=== PATIENT | female | born 1935 | race Caucasian/White ===

== ENCOUNTER 2017-11-13 04:31 | Inpatient (IN) | payer MEDICARE, BC ==
[2017-11-13] MEDS ORDERED: SODIUM CHLORIDE 0.9% FLUSH 10 ML FLUSH IVF (04:45)
[2017-11-13 05:25] LABS: AUTOMATED NEUTROPHIL # 2.6 TH/MM3 (1.8-7.7); BASOPHIL % 0.3 % (0.0-2.0); EOSINOPHIL % 0.2 % (0.0-4.0); HEMATOCRIT 31.7 % (35.0-46.0); LYMPH % 14.2 % (9.0-44.0); LYMPHOCYTE # 0.5 TH/MM3 (1.0-4.8); MEAN CELL VOLUME 87.3 FL (80.0-100.0); MEAN CORPUSCULAR HEMOGLOBIN 27.5 PG (27.0-34.0); MEAN CORPUSCULAR HGB CONC 31.5 % (32.0-36.0); MEAN PLATELET VOLUME 8.4 FL (7.0-11.0); MONO % 10.4 % (0.0-8.0); MONOCYTE # 0.4 TH/MM3 (0-0.9); NEUT % 74.9 % (16.0-70.0); PLATELET COUNT 109 TH/MM3 (150-450); RED BLOOD COUNT 3.63 MIL/MM3 (4.00-5.30); RED CELL DISTRIBUTION WIDTH 27.7 % (11.6-17.2); WHITE BLOOD COUNT 3.5 TH/MM3 (4.0-11.0)
[2017-11-13 05:29] LABS: HEMO FLAGS AUTO DIFF
[2017-11-13 05:35] LABS: CHLORIDE 103 MEQ/L (98-107); POTASSIUM 3.6 MEQ/L (3.5-5.1); SODIUM (NA) 136 MEQ/L (136-145)
[2017-11-13 05:39] LABS: ALBUMIN 2.5 GM/DL (3.4-5.0); ANION GAP 6 MEQ/L (5-15); APTT (PATIENT) 32.8 SEC (24.3-30.1); BICARBONATE 27.4 MEQ/L (21.0-32.0); BLOOD UREA NITROGEN 25 MG/DL (7-18); CALCIUM 7.8 MG/DL (8.5-10.1); GLUCOSE,RANDOM 201 MG/DL (74-106); INTERNATIONAL NORMALIZED RATIO 1.7 RATIO; LIPASE 155 U/L (73-393); PROTHROMBIN TIME - PATIENT 16.7 SEC (9.8-11.6)
[2017-11-13 05:41] LABS: OVALOCYTES 1+ (NORMAL); PLATELET ESTIMATE SMEAR LOW (NORMAL); PLATELET MORPHOLOGY NORMAL (NORMAL); SCAN/DIFF AUTO DIFF CONFIRMED
[2017-11-13 05:42] LABS: ALT (GPT) 30 U/L (10-53); AST (GOT) 40 U/L (15-37); GLOMERULAR FILTRATION RATE 48 ML/MIN (>89)
[2017-11-13 05:44] LABS: TOTAL BILIRUBIN ADULT 1.3 MG/DL (0.2-1.0); TOTAL PROTEIN 6.8 GM/DL (6.4-8.2)
[2017-11-13 05:45] LABS: ALKALINE PHOSPHATASE 88 U/L (45-117)
[2017-11-13 05:47] LABS: TROPONIN I 0.03 NG/ML (0.02-0.05)
[2017-11-13 05:49] LABS: CREATINE KINASE 46 U/L (26-192)
[2017-11-13] MEDS ORDERED: ONDANSETRON HCL 4 MG/2 ML VIAL IVP (06:00)
[2017-11-13] MEDS ORDERED: LACTULOSE SYRUP 20 GM/30 ML CUP PO (06:00)
[2017-11-13] MEDS ORDERED: MAGNESIUM HYDROXIDE SUSP 30 ML CUP PO (06:00)
[2017-11-13] MEDS ORDERED: HEPARIN SODIUM - SQ 10,000 UNITS/ML VIAL SQ (06:00)
[2017-11-13] MEDS ORDERED: NALOXONE HCL 0.4 MG/ML AMP IV PUSH (06:00)
[2017-11-13 06:02] LABS: B-TYPE NATRIURETIC PEPTIDE 1107 PG/ML (0-100)
[2017-11-13] MEDS ORDERED: DEXTROSE 50% IN WATER 50 ML VIAL(D50) IV PUSH (06:15)
[2017-11-13] MEDS ORDERED: GLUCAGON 1 MG/ML VIAL OTHER (06:15)
[2017-11-13] MEDS: IOHEXOL 350 MG/ML 10 ML VIAL (for RAD DIAG) IVCONTRAST (06:34)
[2017-11-13] MEDS: LEVOTHYROXINE SODIUM 25 MCG TAB PO ×2 (07:23→10:07)
[2017-11-13] MEDS: INSULIN ASPART SUPPLEMENTAL SCALE SQ ×4 (07:36→21:25)
[2017-11-13] MEDS: DOCUSATE SODIUM 50 MG/SENNA 8.6 MG TAB PO ×2 (10:07→21:14)
[2017-11-13] MEDS: DILTIAZEM-CD 180 MG CAP ER PO (10:08)
[2017-11-13] MEDS: BUMETANIDE 1 MG TAB PO ×2 (10:08→21:13)
[2017-11-13] MEDS: CITALOPRAM HYDROBROMIDE 20 MG TAB PO (10:08)
[2017-11-13] MEDS: PANTOPRAZOLE SOD 40 MG DELAYED RELEASE TAB PO (10:08)
[2017-11-13] MEDS: SODIUM CHLORIDE 0.9% FLUSH 10 ML FLUSH IV FLUSH ×3 (10:09→23:11)
[2017-11-13] MEDS: FUROSEMIDE 40 MG/4 ML VIAL IV PUSH (10:09)
[2017-11-13] MEDS: ZEBETA 5 MG PO (10:09)
[2017-11-13] MEDS: AZITHROMYCIN INJ 500 MG in SODIUM CHLOR 0.9% 250 ML INJ 250 ML IV (11:13)
[2017-11-13] MEDS: methylPREDNISolone SOD SUCC 40 MG/1 ML VIAL IV PUSH ×3 (12:23→23:11)
[2017-11-13] MEDS: cefTRIAXone INJ 1,000 MG in SODIUM CHLORIDE 0.9% INJ 100 ML IV (12:23)
[2017-11-13] MEDS: RESP: ALBUTEROL 2.5 MG/IPRATROPIUM 0.5 MG NEB (SCH) NEB ×2 (14:10→20:33)
[2017-11-13] MEDS: WARFARIN SOD 2 MG TAB PO (16:08)
[2017-11-13] MEDS: POTASSIUM CHLORIDE 20 MEQ CONTROLLED RELEASE TAB PO (21:14)
[2017-11-13 21:27] LABS: IRON (FE) 28 MCG/DL (50-170)
[2017-11-13 21:28] LABS: TOTAL IRON BINDING CAPACITY 281 MCG/DL (250-450); TRANSFERRIN IRON PROFILE 201 MG/DL (200-360)
[2017-11-13] MEDS: ALPRAZolam 0.25 MG TAB PO (22:38)
[2017-11-13] MEDS: INSULIN DETEMIR 100 UNITS/ML VIAL SQ (22:38)
[2017-11-14 03:22] LABS: HEMOGLOBIN 10.3 GM/DL (11.6-15.3); MEAN CELL VOLUME 87.8 FL (80.0-100.0); PLATELET COUNT 84 TH/MM3 (150-450); RED BLOOD COUNT 3.53 MIL/MM3 (4.00-5.30); RED CELL DISTRIBUTION WIDTH 28.2 % (11.6-17.2); WHITE BLOOD COUNT 1.9 TH/MM3 (4.0-11.0)
[2017-11-14 03:26] LABS: HEMO FLAGS AUTO DIFF
[2017-11-14 03:32] LABS: ANION GAP 8 MEQ/L (5-15); BICARBONATE 26.2 MEQ/L (21.0-32.0); BLOOD UREA NITROGEN 27 MG/DL (7-18); CALCIUM 7.8 MG/DL (8.5-10.1); CHLORIDE 101 MEQ/L (98-107); CREATININE 1.31 MG/DL (0.50-1.00); GLOMERULAR FILTRATION RATE 39 ML/MIN (>89); GLUCOSE,RANDOM 429 MG/DL (74-106); INTERNATIONAL NORMALIZED RATIO 1.5 RATIO; POTASSIUM 3.5 MEQ/L (3.5-5.1); PROTHROMBIN TIME - PATIENT 15.4 SEC (9.8-11.6); SODIUM (NA) 135 MEQ/L (136-145)
[2017-11-14] MEDS: INSULIN HUMAN REGULAR 1,000 UNITS/10 ML VIAL IV PUSH (03:52)
[2017-11-14 04:35] LABS: BANDS 2 % (0-6); LYMPHOCYTES 6 % (9-44); MONOCYTES 2 % (0-8); NEUTROPHIL # MANUAL DIFF 1.7 TH/MM3 (1.8-7.7); POLYS (SEG NEUTROPHILS) 90 % (16-70); WBC DIFF SAMPLE 50
[2017-11-14 04:36] LABS: PLATELET ESTIMATE SMEAR LOW (NORMAL); PLATELET MORPHOLOGY NORMAL (NORMAL); SCAN/DIFF FINAL DIFF MANUAL
[2017-11-14] MEDS: methylPREDNISolone SOD SUCC 40 MG/1 ML VIAL IV PUSH ×3 (06:26→18:01)
[2017-11-14] MEDS: RESP: ALBUTEROL 2.5 MG/IPRATROPIUM 0.5 MG NEB (SCH) NEB ×3 (08:58→21:00)
[2017-11-14] MEDS: ZEBETA 5 MG PO (09:00)
[2017-11-14] MEDS ORDERED: POTASSIUM CHLORIDE 10 MEQ CAP PO (09:00)
[2017-11-14] MEDS: POTASSIUM CHLORIDE 20 MEQ CONTROLLED RELEASE TAB PO ×2 (09:21→22:42)
[2017-11-14] MEDS: PANTOPRAZOLE SOD 40 MG DELAYED RELEASE TAB PO (09:21)
[2017-11-14] MEDS: DILTIAZEM-CD 180 MG CAP ER PO (09:21)
[2017-11-14] MEDS: CITALOPRAM HYDROBROMIDE 20 MG TAB PO (09:21)
[2017-11-14] MEDS: DOCUSATE SODIUM 50 MG/SENNA 8.6 MG TAB PO ×2 (09:21→21:00)
[2017-11-14] MEDS: BUMETANIDE 1 MG TAB PO ×2 (09:21→22:41)
[2017-11-14] MEDS: INSULIN ASPART SUPPLEMENTAL SCALE SQ ×4 (09:28→22:44)
[2017-11-14] MEDS: SODIUM CHLORIDE 0.9% FLUSH 10 ML FLUSH IV FLUSH ×2 (09:29→21:00)
[2017-11-14] MEDS: cefTRIAXone INJ 1,000 MG in SODIUM CHLORIDE 0.9% INJ 100 ML IV (10:31)
[2017-11-14] MEDS: AZITHROMYCIN INJ 500 MG in SODIUM CHLOR 0.9% 250 ML INJ 250 ML IV (11:09)
[2017-11-14] MEDS: INSULIN DETEMIR 100 UNITS/ML VIAL SQ (11:45)
[2017-11-14] MEDS: WARFARIN SOD 2 MG TAB PO (16:00)
[2017-11-14] MEDS ORDERED: DEXT 5%-NACL 0.45% 1000 ML INJ 1,000 ML IV (18:09)
[2017-11-14] MEDS ORDERED: RESP: ALBUTEROL CONC 2.5 MG/0.5 ML NEB NEB (18:15)
[2017-11-14] MEDS ORDERED: RESP: LIDOCAINE HCL 4% PF 5 ML NEB NEB (18:15)
[2017-11-14 21:48] LABS: AUTOMATED NEUTROPHIL # 4.8 TH/MM3 (1.8-7.7); BASOPHIL % 0.2 % (0.0-2.0); HEMATOCRIT 31.1 % (35.0-46.0); HEMOGLOBIN 10.4 GM/DL (11.6-15.3); LYMPH % 7.8 % (9.0-44.0); LYMPHOCYTE # 0.4 TH/MM3 (1.0-4.8); MEAN CELL VOLUME 88.1 FL (80.0-100.0); MEAN CORPUSCULAR HEMOGLOBIN 29.4 PG (27.0-34.0); MEAN CORPUSCULAR HGB CONC 33.3 % (32.0-36.0); MEAN PLATELET VOLUME 8.7 FL (7.0-11.0); MONO % 6.1 % (0.0-8.0); MONOCYTE # 0.3 TH/MM3 (0-0.9); NEUT % 85.9 % (16.0-70.0); PLATELET COUNT 101 TH/MM3 (150-450); RED BLOOD COUNT 3.53 MIL/MM3 (4.00-5.30); RED CELL DISTRIBUTION WIDTH 27.9 % (11.6-17.2); WHITE BLOOD COUNT 5.6 TH/MM3 (4.0-11.0)
[2017-11-14 21:50] LABS: HEMO FLAGS AUTO DIFF
[2017-11-14 22:38] LABS: ACANTHOCYTES OCC (NORMAL); OVALOCYTES 1+ (NORMAL)
[2017-11-14 22:39] LABS: PLATELET ESTIMATE SMEAR LOW (NORMAL); PLATELET MORPHOLOGY NORMAL (NORMAL); SCAN/DIFF AUTO DIFF CONFIRMED
[2017-11-14 23:02] LABS: APTT (PATIENT) 30.6 SEC (24.3-30.1); INTERNATIONAL NORMALIZED RATIO 1.6 RATIO; PROTHROMBIN TIME - PATIENT 15.9 SEC (9.8-11.6)
[2017-11-15] MEDS: methylPREDNISolone SOD SUCC 40 MG/1 ML VIAL IV PUSH ×2 (01:22→06:03)
[2017-11-15] MEDS: RESP: ALBUTEROL 2.5 MG/IPRATROPIUM 0.5 MG NEB (PRN) NEB (01:28)
[2017-11-15] MEDS ORDERED: CHLORHEXIDINE GLUCONATE 2 % 1 PACK (2 CLOTHS) TOPICAL (04:45)
[2017-11-15] MEDS ORDERED: LACTATED RINGER'S 1000 ML IV (04:45)
[2017-11-15] MEDS ORDERED: SODIUM CHLORID 0.9% 500 ML IV (04:45)
[2017-11-15] MEDS ORDERED: POVIDONE IODINE 5% (ANTISEPSIS KIT) 4 APPLICATIONS EACH NARE (04:45)
[2017-11-15] MEDS: LEVOTHYROXINE SODIUM 25 MCG TAB PO (06:03)
[2017-11-15] MEDS: RESP: ALBUTEROL 2.5 MG/IPRATROPIUM 0.5 MG NEB (SCH) NEB ×3 (08:00→18:39)
[2017-11-15] MEDS: ZEBETA 5 MG PO (08:12)
[2017-11-15] MEDS: INSULIN ASPART SUPPLEMENTAL SCALE SQ ×5 (08:12→22:29)
[2017-11-15] MEDS: SODIUM CHLORIDE 0.9% FLUSH 10 ML FLUSH IV FLUSH ×2 (08:12→20:32)
[2017-11-15] MEDS: DILTIAZEM-CD 180 MG CAP ER PO (08:13)
[2017-11-15] MEDS: BUMETANIDE 1 MG TAB PO ×2 (08:13→20:32)
[2017-11-15] MEDS: INSULIN DETEMIR 100 UNITS/ML VIAL SQ ×2 (08:13→09:00)
[2017-11-15] MEDS: DOCUSATE SODIUM 50 MG/SENNA 8.6 MG TAB PO ×2 (08:13→20:33)
[2017-11-15] MEDS: PANTOPRAZOLE SOD 40 MG DELAYED RELEASE TAB PO (08:13)
[2017-11-15] MEDS: CITALOPRAM HYDROBROMIDE 20 MG TAB PO (08:13)
[2017-11-15] MEDS: POTASSIUM CHLORIDE 20 MEQ CONTROLLED RELEASE TAB PO ×2 (08:13→20:31)
[2017-11-15] MEDS: *RESP: ALBUTEROL 2.5 MG/3 ML NEB (PRN) PERIprocedural Use ONLY NEB (09:09)
[2017-11-15] MEDS: AZITHROMYCIN INJ 500 MG in SODIUM CHLOR 0.9% 250 ML INJ 250 ML IV (10:00)
[2017-11-15] MEDS ORDERED: DO NOT ADM ANY ANTICOAGULANT DRUGS (10:15)
[2017-11-15 11:31] LABS: AUTOMATED NEUTROPHIL # 4.2 TH/MM3 (1.8-7.7); HEMATOCRIT 29.6 % (35.0-46.0); HEMOGLOBIN 9.7 GM/DL (11.6-15.3); LYMPH % 2.7 % (9.0-44.0); LYMPHOCYTE # 0.1 TH/MM3 (1.0-4.8); MEAN CELL VOLUME 89.5 FL (80.0-100.0); MEAN CORPUSCULAR HEMOGLOBIN 29.4 PG (27.0-34.0); MEAN CORPUSCULAR HGB CONC 32.9 % (32.0-36.0); MEAN PLATELET VOLUME 8.7 FL (7.0-11.0); MONO % 5.6 % (0.0-8.0); MONOCYTE # 0.3 TH/MM3 (0-0.9); NEUT % 91.7 % (16.0-70.0); PLATELET COUNT 100 TH/MM3 (150-450); RED BLOOD COUNT 3.31 MIL/MM3 (4.00-5.30); RED CELL DISTRIBUTION WIDTH 28.3 % (11.6-17.2); WHITE BLOOD COUNT 4.6 TH/MM3 (4.0-11.0)
[2017-11-15 11:38] LABS: INTERNATIONAL NORMALIZED RATIO 1.6 RATIO; PROTHROMBIN TIME - PATIENT 16.1 SEC (9.8-11.6)
[2017-11-15 11:42] LABS: HEMO FLAGS AUTO DIFF
[2017-11-15] MEDS: cefTRIAXone INJ 1,000 MG in SODIUM CHLORIDE 0.9% INJ 100 ML IV (11:57)
[2017-11-15 12:16] LABS: ALBUMIN 2.7 GM/DL (3.4-5.0); ALKALINE PHOSPHATASE 77 U/L (45-117); ALT (GPT) 25 U/L (10-53); ANION GAP 12 MEQ/L (5-15); AST (GOT) 27 U/L (15-37); BICARBONATE 23.5 MEQ/L (21.0-32.0); BLOOD UREA NITROGEN 40 MG/DL (7-18); CALCIUM 8.5 MG/DL (8.5-10.1); CHLORIDE 102 MEQ/L (98-107); CREATININE 1.61 MG/DL (0.50-1.00); GLOMERULAR FILTRATION RATE 31 ML/MIN (>89); GLUCOSE,RANDOM 280 MG/DL (74-106); POTASSIUM 3.6 MEQ/L (3.5-5.1); SODIUM (NA) 137 MEQ/L (136-145); TOTAL BILIRUBIN ADULT 0.6 MG/DL (0.2-1.0); TOTAL PROTEIN 6.8 GM/DL (6.4-8.2)
[2017-11-15 12:26] LABS: SCAN/DIFF AUTO DIFF CONFIRMED
[2017-11-15] MEDS: WARFARIN SOD 2 MG TAB PO (16:00)
[2017-11-15] MEDS: ACETAMINOPHEN 325 MG TAB PO (18:58)
[2017-11-15] MEDS ORDERED: methylPREDNISolone SOD SUCC 40 MG/1 ML VIAL IV PUSH (19:30)
[2017-11-15] MEDS: methylPREDNISolone SOD SUCC 125 MG/2 ML VIAL IV (20:31)
[2017-11-15 20:58] LABS: LACTIC ACID SEPSIS PROTOCOL 2.7 mmol/L (0.4-2.0)
[2017-11-15] MEDS: SODIUM CHLOR 0.9% 1000 ML INJ 1,000 ML IV ×2 (22:15→22:29)
[2017-11-15 22:35] LABS: LACTIC ACID GHOST NOT REPORTABLE
[2017-11-16] MEDS: cloNIDine HCL 0.1 MG TAB PO ×2 (01:52→09:47)
[2017-11-16] MEDS: LEVOTHYROXINE SODIUM 25 MCG TAB PO (05:07)
[2017-11-16 06:33] LABS: AUTOMATED NEUTROPHIL # 5.8 TH/MM3 (1.8-7.7); BASOPHIL % 0.1 % (0.0-2.0); HEMATOCRIT 30.7 % (35.0-46.0); HEMOGLOBIN 10.1 GM/DL (11.6-15.3); LYMPH % 3.4 % (9.0-44.0); LYMPHOCYTE # 0.2 TH/MM3 (1.0-4.8); MEAN CORPUSCULAR HEMOGLOBIN 29.3 PG (27.0-34.0); MEAN CORPUSCULAR HGB CONC 32.9 % (32.0-36.0); MEAN PLATELET VOLUME 9.1 FL (7.0-11.0); MONO % 5.1 % (0.0-8.0); MONOCYTE # 0.3 TH/MM3 (0-0.9); NEUT % 91.4 % (16.0-70.0); PLATELET COUNT 95 TH/MM3 (150-450); RED BLOOD COUNT 3.45 MIL/MM3 (4.00-5.30); WHITE BLOOD COUNT 6.3 TH/MM3 (4.0-11.0)
[2017-11-16 06:34] LABS: INTERNATIONAL NORMALIZED RATIO 1.6 RATIO; PROTHROMBIN TIME - PATIENT 16.5 SEC (9.8-11.6)
[2017-11-16 06:35] LABS: HEMO FLAGS AUTO DIFF
[2017-11-16 06:40] LABS: ALBUMIN 2.5 GM/DL (3.4-5.0); ALT (GPT) 27 U/L (10-53); ANION GAP 11 MEQ/L (5-15); AST (GOT) 37 U/L (15-37); BICARBONATE 22.3 MEQ/L (21.0-32.0); BLOOD UREA NITROGEN 34 MG/DL (7-18); CALCIUM 8.1 MG/DL (8.5-10.1); CHLORIDE 104 MEQ/L (98-107); CREATININE 1.24 MG/DL (0.50-1.00); GLOMERULAR FILTRATION RATE 42 ML/MIN (>89); GLUCOSE,RANDOM 322 MG/DL (74-106); POTASSIUM 4.1 MEQ/L (3.5-5.1); SODIUM (NA) 137 MEQ/L (136-145)
[2017-11-16 06:42] LABS: ALKALINE PHOSPHATASE 75 U/L (45-117); TOTAL BILIRUBIN ADULT 0.7 MG/DL (0.2-1.0); TOTAL PROTEIN 6.8 GM/DL (6.4-8.2)
[2017-11-16 08:07] LABS: BANDS 19 % (0-6); LYMPHOCYTES 2 % (9-44); MONOCYTES 3 % (0-8); OVALOCYTES 1+ (NORMAL); PLATELET ESTIMATE SMEAR LOW (NORMAL); PLATELET MORPHOLOGY ENLARGED (NORMAL); POLYS (SEG NEUTROPHILS) 76 % (16-70); SCAN/DIFF FINAL DIFF MANUAL; WBC DIFF SAMPLE 100
[2017-11-16] MEDS: ZEBETA 5 MG PO (09:00)
[2017-11-16] MEDS: RESP: ALBUTEROL 2.5 MG/IPRATROPIUM 0.5 MG NEB (SCH) NEB ×3 (09:09→19:33)
[2017-11-16] MEDS: DILTIAZEM-CD 180 MG CAP ER PO (09:46)
[2017-11-16] MEDS: BUMETANIDE 1 MG TAB PO ×2 (09:46→21:00)
[2017-11-16] MEDS: POTASSIUM CHLORIDE 20 MEQ CONTROLLED RELEASE TAB PO ×2 (09:46→21:00)
[2017-11-16] MEDS: PANTOPRAZOLE SOD 40 MG DELAYED RELEASE TAB PO (09:47)
[2017-11-16] MEDS: DOCUSATE SODIUM 50 MG/SENNA 8.6 MG TAB PO ×2 (09:47→21:00)
[2017-11-16] MEDS: SODIUM CHLORIDE 0.9% FLUSH 10 ML FLUSH IV FLUSH ×2 (09:47→21:00)
[2017-11-16] MEDS: CITALOPRAM HYDROBROMIDE 20 MG TAB PO (09:47)
[2017-11-16] MEDS: INSULIN ASPART SUPPLEMENTAL SCALE SQ ×4 (09:48→21:00)
[2017-11-16] MEDS: INSULIN DETEMIR 100 UNITS/ML VIAL SQ ×2 (09:48→20:00)
[2017-11-16] MEDS: AZITHROMYCIN INJ 500 MG in SODIUM CHLOR 0.9% 250 ML INJ 250 ML IV (10:04)
[2017-11-16] MEDS: cefTRIAXone INJ 1,000 MG in SODIUM CHLORIDE 0.9% INJ 100 ML IV (12:24)
[2017-11-16 13:17] LABS: BLOOD GAS BASE EXCESS 0.9 mmol/L (-2-2); BLOOD GAS CARBOXYHEMOGLOBIN 1.3 % (0-4); BLOOD GAS HCO3 24 mmol/L (22-26); BLOOD GAS METHEMOGLOBIN 1.5 % (0-2); BLOOD GAS O2 HGB SATURATION 90 % (90-100); BLOOD GAS OXYGEN CONTENT 13.6 Vol % (12.0-20.0); BLOOD GAS PCO2 35 mmHg (38-42); BLOOD GAS PO2 67 mmHg (61-120); BLOOD GAS TOTAL HGB 10.7 G/DL (12.0-16.0); CRITICAL VALUE NO; DRAW SITE LT RADIAL; LITER FLOW 15 L/M; NUMBER OF ARTERIAL PUNCTURES 1; STAT YES; TEMP CORR TO 98.6; ULNAR PULSE PRESENT
[2017-11-16] MEDS: WARFARIN SOD 1 MG TAB PO (16:29)
[2017-11-16] MEDS ORDERED: SODIUM CHLORID 0.9% 500 ML INJ 500 ML IV (20:15)
[2017-11-16 20:33] LABS: BLOOD GAS BASE EXCESS 0.9 mmol/L (-2-2); BLOOD GAS HCO3 24 mmol/L (22-26); BLOOD GAS METHEMOGLOBIN 1.8 % (0-2); BLOOD GAS O2 HGB SATURATION 90 % (90-100); BLOOD GAS PCO2 32 mmHg (38-42); BLOOD GAS PO2 66 mmHg (61-120); BLOOD GAS TOTAL HGB 9.4 G/DL (12.0-16.0); CRITICAL VALUE NO; DRAW SITE LT RADIAL; FIO2 70 %; NUMBER OF ARTERIAL PUNCTURES 1; OXYGEN DEVICE BIPAP; STAT YES; TEMP CORR TO 98.6; ULNAR PULSE PRESENT
[2017-11-16 20:34] LABS: VENT SETTINGS IPAP 10/ EPAP 5
[2017-11-16] MEDS: methylPREDNISolone SOD SUCC 125 MG/2 ML VIAL IV PUSH (20:45)
[2017-11-16] MEDS ORDERED: VANCOMYCIN INJ 1,000 MG in SODIUM CHLOR 0.9% 250 ML INJ 250 ML IV (21:45)
[2017-11-16] MEDS ORDERED: Vancomycin Consult Pharmacy 1 EA OTHER (21:45)
[2017-11-16] MEDS: CEFEPIME INJ 2,000 MG in SODIUM CHLORIDE 0.9% INJ 100 ML IV (22:00)
[2017-11-16] MEDS: SODIUM CHLOR 0.9% 1000 ML INJ 1,000 ML IV (22:00)
[2017-11-16] MEDS: VANCOMYCIN INJ 1,500 MG in SODIUM CHLORID 0.9% 500 ML INJ 500 ML IV (23:00)
[2017-11-17] MEDS: methylPREDNISolone SOD SUCC 40 MG/1 ML VIAL IV PUSH ×4 (03:00→23:55)
[2017-11-17] MEDS: LEVOTHYROXINE SODIUM 25 MCG TAB PO (06:00)
[2017-11-17 07:00] LABS: AUTOMATED NEUTROPHIL # 5.1 TH/MM3 (1.8-7.7); BASOPHIL % 0.2 % (0.0-2.0); HEMATOCRIT 31.6 % (35.0-46.0); HEMOGLOBIN 10.6 GM/DL (11.6-15.3); LYMPH % 6.6 % (9.0-44.0); LYMPHOCYTE # 0.4 TH/MM3 (1.0-4.8); MEAN CELL VOLUME 87.7 FL (80.0-100.0); MEAN CORPUSCULAR HEMOGLOBIN 29.3 PG (27.0-34.0); MEAN CORPUSCULAR HGB CONC 33.4 % (32.0-36.0); MEAN PLATELET VOLUME 8.8 FL (7.0-11.0); MONO % 3.9 % (0.0-8.0); MONOCYTE # 0.2 TH/MM3 (0-0.9); NEUT % 89.3 % (16.0-70.0); PLATELET COUNT 93 TH/MM3 (150-450); WHITE BLOOD COUNT 5.7 TH/MM3 (4.0-11.0)
[2017-11-17 07:03] LABS: HEMO FLAGS AUTO DIFF
[2017-11-17 07:29] LABS: ALBUMIN 2.2 GM/DL (3.4-5.0); ALKALINE PHOSPHATASE 68 U/L (45-117); ALT (GPT) 22 U/L (10-53); ANION GAP 9 MEQ/L (5-15); AST (GOT) 41 U/L (15-37); BICARBONATE 26.5 MEQ/L (21.0-32.0); BLOOD UREA NITROGEN 28 MG/DL (7-18); CALCIUM 7.8 MG/DL (8.5-10.1); CHLORIDE 105 MEQ/L (98-107); CREATININE 1.07 MG/DL (0.50-1.00); GLOMERULAR FILTRATION RATE 49 ML/MIN (>89); GLUCOSE,RANDOM 168 MG/DL (74-106); INTERNATIONAL NORMALIZED RATIO 1.4 RATIO; POTASSIUM 3.5 MEQ/L (3.5-5.1); PROTHROMBIN TIME - PATIENT 14.2 SEC (9.8-11.6); SODIUM (NA) 140 MEQ/L (136-145); TOTAL BILIRUBIN ADULT 0.9 MG/DL (0.2-1.0); TOTAL PROTEIN 6.4 GM/DL (6.4-8.2)
[2017-11-17] MEDS: RESP: ALBUTEROL 2.5 MG/IPRATROPIUM 0.5 MG NEB (SCH) NEB ×4 (08:00→21:19)
[2017-11-17 08:47] LABS: OVALOCYTES 1+ (NORMAL); PLATELET ESTIMATE SMEAR LOW (NORMAL); PLATELET MORPHOLOGY NORMAL (NORMAL); SCAN/DIFF AUTO DIFF CONFIRMED
[2017-11-17] MEDS: ZEBETA 5 MG PO (09:00)
[2017-11-17] MEDS ORDERED: ETOMIDATE 20 MG/10 ML VIAL (09:07)
[2017-11-17] MEDS: ETOMIDATE 20 MG/10 ML VIAL IV PUSH (09:15)
[2017-11-17] MEDS ORDERED: POTASSIUM CHLOR 20 MEQ PREMIX 100 ML IV ×2 (09:30)
[2017-11-17] MEDS ORDERED: MAGNESIUM SULFATE INJ 4 GM in SODIUM CHLORIDE 0.9% INJ 92 ML IV (09:30)
[2017-11-17] MEDS ORDERED: POTASSIUM CHLORIDE 25 MEQ EFFERVESCENT TAB PO (09:30)
[2017-11-17] MEDS ORDERED: POTASSIUM PHOSPHATE INJ 30 MMOL in SODIUM CHLOR 0.9% 250 ML INJ 250 ML IV (09:30)
[2017-11-17] MEDS: FAMOTIDINE 20 MG/2 ML VIAL IV PUSH ×2 (09:30→21:30)
[2017-11-17] MEDS ORDERED: POTASSIUM PHOSPHATE MONOBASIC 500 MG TAB PO (09:30)
[2017-11-17] MEDS ORDERED: MAGNESIUM SULFATE INJ 2 GM in SODIUM CHLORIDE 0.9% INJ 96 ML IV (09:30)
[2017-11-17] MEDS ORDERED: POTASSIUM CHLOR 40 MEQ PREMIX 100 ML IV ×2 (09:30)
[2017-11-17] MEDS ORDERED: SODIUM PHOSPHATE INJ 30 MMOL in SODIUM CHLOR 0.9% 250 ML INJ 240 ML IV (09:30)
[2017-11-17] MEDS ORDERED: POTASSIUM PHOSPHATE MONOBASIC 500 MG TAB PO/TUBE (09:30)
[2017-11-17] MEDS ORDERED: MAGNESIUM OXIDE 400 MG TAB PO (09:30)
[2017-11-17 11:05] LABS: AUTOMATED NEUTROPHIL # 5.4 TH/MM3 (1.8-7.7); BASOPHIL % 0.1 % (0.0-2.0); HEMATOCRIT 32.3 % (35.0-46.0); HEMOGLOBIN 10.6 GM/DL (11.6-15.3); LYMPH % 8.2 % (9.0-44.0); LYMPHOCYTE # 0.5 TH/MM3 (1.0-4.8); MEAN CELL VOLUME 88.8 FL (80.0-100.0); MEAN CORPUSCULAR HEMOGLOBIN 29.2 PG (27.0-34.0); MEAN CORPUSCULAR HGB CONC 32.9 % (32.0-36.0); MONO % 4.9 % (0.0-8.0); MONOCYTE # 0.3 TH/MM3 (0-0.9); NEUT % 86.8 % (16.0-70.0); PLATELET COUNT 115 TH/MM3 (150-450); RED BLOOD COUNT 3.64 MIL/MM3 (4.00-5.30); RED CELL DISTRIBUTION WIDTH 27.8 % (11.6-17.2); WHITE BLOOD COUNT 6.2 TH/MM3 (4.0-11.0)
[2017-11-17 11:16] LABS: HEMO FLAGS AUTO DIFF
[2017-11-17 11:42] LABS: OVALOCYTES 1+ (NORMAL); PLATELET ESTIMATE SMEAR LOW (NORMAL); PLATELET MORPHOLOGY NORMAL (NORMAL); SCAN/DIFF AUTO DIFF CONFIRMED
[2017-11-17 11:43] LABS: B-TYPE NATRIURETIC PEPTIDE 665 PG/ML (0-100)
[2017-11-17 11:58] LABS: BILIRUBIN, URINE NEG (NEG); BLOOD, URINE SMALL (NEG); COMMENT (UR) CATH-CULT NOT IND; CULTURE IF INDICATED CATH CULTURE NOT IND; GLUCOSE,URINE NEG (NEG); HYALINE CAST, URINE 8 /lpf (RARE); KETONE, URINE NEG (NEG); NITRITE,URINE NEG (NEG); PH, URINE 5.5 (5.0-8.5); SQUAMOUS EPITHELIAL CELL URINE <1 /hpf (0-5); URINE COLOR LIGHT-YELLOW (YELLW/STRAW); URINE LEUKOCYTE ESTERASE NEG (NEG)
[2017-11-17] MEDS: CEFEPIME INJ 2,000 MG in SODIUM CHLORIDE 0.9% INJ 100 ML IV ×2 (12:22→23:54)
[2017-11-17] MEDS: FUROSEMIDE 40 MG/4 ML VIAL IV PUSH (12:24)
[2017-11-17] MEDS: PANTOPRAZOLE SODIUM 40 MG VIAL IV PUSH (12:24)
[2017-11-17] MEDS: SODIUM CHLORIDE 0.9% FLUSH 10 ML FLUSH IV FLUSH ×2 (12:25→21:00)
[2017-11-17] MEDS: AZITHROMYCIN INJ 500 MG in SODIUM CHLOR 0.9% 250 ML INJ 250 ML IV (12:27)
[2017-11-17] MEDS: INSULIN ASPART SUPPLEMENTAL SCALE SQ ×3 (12:30→20:00)
[2017-11-17 12:32] LABS: BLOOD GAS BASE EXCESS 2.9 mmol/L (-2-2); BLOOD GAS CARBOXYHEMOGLOBIN 0.8 % (0-4); BLOOD GAS HCO3 28 mmol/L (22-26); BLOOD GAS METHEMOGLOBIN 1.8 % (0-2); BLOOD GAS O2 HGB SATURATION 96 % (90-100); BLOOD GAS OXYGEN CONTENT 13.4 Vol % (12.0-20.0); BLOOD GAS PCO2 51 mmHg (38-42); BLOOD GAS PO2 185 mmHg (61-120); BLOOD GAS TOTAL HGB 9.6 G/DL (12.0-16.0); CRITICAL VALUE YES; OXYGEN DEVICE VENTILATOR; TEMP CORR TO 98.6
[2017-11-17 12:33] LABS: DRAW SITE LT RADIAL; FIO2 100 %; NUMBER OF ARTERIAL PUNCTURES 1; STAT NO; ULNAR PULSE PRESENT; VENT SETTINGS PRVC14/400/+10PEEP
[2017-11-17] MEDS: PROPOFOL 500 MG/50 ML INJ 50 ML (13:02)
[2017-11-17] MEDS: CITALOPRAM HYDROBROMIDE 20 MG TAB PO (13:05)
[2017-11-17] MEDS: fentaNYL DRIP 250 ML IV (13:05)
[2017-11-17] MEDS: DOCUSATE SODIUM 50 MG/SENNA 8.6 MG TAB PO ×2 (13:06→21:00)
[2017-11-17] MEDS: PROPOFOL 1000 MG/100 ML INJ 100 ML IV ×2 (13:06→17:30)
[2017-11-17 13:33] LABS: ALBUMIN 2.1 GM/DL (3.4-5.0); ALT (GPT) 21 U/L (10-53); ANION GAP 9 MEQ/L (5-15); AST (GOT) 40 U/L (15-37); BICARBONATE 27.3 MEQ/L (21.0-32.0); BLOOD UREA NITROGEN 29 MG/DL (7-18); CALCIUM 7.7 MG/DL (8.5-10.1); CHLORIDE 106 MEQ/L (98-107); CREATININE 1.07 MG/DL (0.50-1.00); GLOMERULAR FILTRATION RATE 49 ML/MIN (>89); GLUCOSE,RANDOM 205 MG/DL (74-106); MAGNESIUM 1.8 MG/DL (1.5-2.5); PHOSPHORUS 3.9 MG/DL (2.5-4.9); POTASSIUM 3.9 MEQ/L (3.5-5.1); SODIUM (NA) 142 MEQ/L (136-145)
[2017-11-17 13:43] LABS: ALKALINE PHOSPHATASE 64 U/L (45-117); TROPONIN I 0.05 NG/ML (0.02-0.05)
[2017-11-17 13:46] LABS: CREATINE KINASE 65 U/L (26-192)
[2017-11-17] MEDS: CHLORHEXIDINE 0.12% (ORAL KIT) 15 ML CUP MT (20:24)
[2017-11-17] MEDS: VANCOMYCIN 1,000 MG/NS 250 ML IV (23:55)
[2017-11-18] MEDS: RESP: ALBUTEROL 2.5 MG/IPRATROPIUM 0.5 MG NEB (SCH) NEB ×7 (00:22→23:58)
[2017-11-18] MEDS: PROPOFOL 1000 MG/100 ML INJ 100 ML IV ×2 (02:22→14:24)
[2017-11-18] MEDS: INSULIN ASPART SUPPLEMENTAL SCALE SQ ×6 (04:00→20:25)
[2017-11-18 05:26] LABS: AUTOMATED NEUTROPHIL # 3.8 TH/MM3 (1.8-7.7); BASOPHIL % 0.1 % (0.0-2.0); EOSINOPHIL % 0.1 % (0.0-4.0); HEMATOCRIT 30.7 % (35.0-46.0); HEMOGLOBIN 10.1 GM/DL (11.6-15.3); LYMPH % 5.1 % (9.0-44.0); LYMPHOCYTE # 0.2 TH/MM3 (1.0-4.8); MEAN CELL VOLUME 89.2 FL (80.0-100.0); MEAN CORPUSCULAR HEMOGLOBIN 29.3 PG (27.0-34.0); MEAN CORPUSCULAR HGB CONC 32.9 % (32.0-36.0); MEAN PLATELET VOLUME 9.4 FL (7.0-11.0); MONO % 5.4 % (0.0-8.0); MONOCYTE # 0.2 TH/MM3 (0-0.9); NEUT % 89.3 % (16.0-70.0); PLATELET COUNT 99 TH/MM3 (150-450); RED BLOOD COUNT 3.44 MIL/MM3 (4.00-5.30); RED CELL DISTRIBUTION WIDTH 27.6 % (11.6-17.2); WHITE BLOOD COUNT 4.3 TH/MM3 (4.0-11.0)
[2017-11-18 05:29] LABS: HEMO FLAGS AUTO DIFF
[2017-11-18 05:31] LABS: INTERNATIONAL NORMALIZED RATIO 1.5 RATIO; PROTHROMBIN TIME - PATIENT 15.3 SEC (9.8-11.6)
[2017-11-18 05:46] LABS: ALT (GPT) 19 U/L (10-53); PHOSPHORUS 4.2 MG/DL (2.5-4.9)
[2017-11-18 05:48] LABS: ALKALINE PHOSPHATASE 65 U/L (45-117); TOTAL BILIRUBIN ADULT 0.8 MG/DL (0.2-1.0); TOTAL PROTEIN 6.3 GM/DL (6.4-8.2)
[2017-11-18 05:50] LABS: ALBUMIN 2.1 GM/DL (3.4-5.0); ANION GAP 8 MEQ/L (5-15); AST (GOT) 38 U/L (15-37); BICARBONATE 25.6 MEQ/L (21.0-32.0); BLOOD UREA NITROGEN 38 MG/DL (7-18); CALCIUM 8.2 MG/DL (8.5-10.1); CHLORIDE 108 MEQ/L (98-107); CREATININE 1.17 MG/DL (0.50-1.00); GLOMERULAR FILTRATION RATE 45 ML/MIN (>89); GLUCOSE,RANDOM 227 MG/DL (74-106); MAGNESIUM 2.1 MG/DL (1.5-2.5); SODIUM (NA) 142 MEQ/L (136-145)
[2017-11-18] MEDS: methylPREDNISolone SOD SUCC 40 MG/1 ML VIAL IV PUSH ×3 (06:00→17:41)
[2017-11-18] MEDS: LEVOTHYROXINE SODIUM 25 MCG TAB PO (06:00)
[2017-11-18 06:51] LABS: OVALOCYTES 1+ (NORMAL); PLATELET ESTIMATE SMEAR LOW (NORMAL); PLATELET MORPHOLOGY NORMAL (NORMAL); SCAN/DIFF AUTO DIFF CONFIRMED
[2017-11-18] MEDS: PROPOFOL 500 MG/50 ML INJ 0 ML (07:59)
[2017-11-18] MEDS: FAMOTIDINE 20 MG/2 ML VIAL IV PUSH ×2 (08:40→20:27)
[2017-11-18] MEDS: DOCUSATE SODIUM 50 MG/SENNA 8.6 MG TAB PO ×2 (08:40→20:26)
[2017-11-18] MEDS: CITALOPRAM HYDROBROMIDE 20 MG TAB PO (08:40)
[2017-11-18] MEDS: ZEBETA 5 MG PO (09:00)
[2017-11-18] MEDS: INSULIN DETEMIR 100 UNITS/ML VIAL SQ ×2 (09:36→20:25)
[2017-11-18] MEDS: FUROSEMIDE 40 MG/4 ML VIAL IV PUSH (09:37)
[2017-11-18] MEDS: AZITHROMYCIN INJ 500 MG in SODIUM CHLOR 0.9% 250 ML INJ 250 ML IV (09:37)
[2017-11-18] MEDS: HEPARIN SODIUM - SQ 10,000 UNITS/ML VIAL SQ ×2 (09:43→20:26)
[2017-11-18] MEDS: CEFEPIME INJ 2,000 MG in SODIUM CHLORIDE 0.9% INJ 100 ML IV ×2 (10:06→22:55)
[2017-11-18] MEDS: SODIUM CHLORIDE 0.9% FLUSH 10 ML FLUSH IV FLUSH ×2 (11:41→20:26)
[2017-11-18] MEDS: fentaNYL DRIP 250 ML IV (14:25)
[2017-11-18] MEDS: CHLORHEXIDINE 0.12% (ORAL KIT) 15 ML CUP MT (20:27)
[2017-11-18] MEDS: PHARMACY ORDERED LAB (22:45)
[2017-11-18] MEDS: VANCOMYCIN 1,000 MG/NS 250 ML IV (22:56)
[2017-11-19 01:37] LABS: AUTOMATED NEUTROPHIL # 4.1 TH/MM3 (1.8-7.7); BASOPHIL % 0.1 % (0.0-2.0); HEMATOCRIT 32.7 % (35.0-46.0); HEMOGLOBIN 10.7 GM/DL (11.6-15.3); LYMPH % 4.5 % (9.0-44.0); LYMPHOCYTE # 0.2 TH/MM3 (1.0-4.8); MEAN CELL VOLUME 89.6 FL (80.0-100.0); MEAN CORPUSCULAR HEMOGLOBIN 29.3 PG (27.0-34.0); MEAN CORPUSCULAR HGB CONC 32.7 % (32.0-36.0); MEAN PLATELET VOLUME 8.7 FL (7.0-11.0); MONO % 4.2 % (0.0-8.0); MONOCYTE # 0.2 TH/MM3 (0-0.9); NEUT % 91.2 % (16.0-70.0); PLATELET COUNT 113 TH/MM3 (150-450); RED BLOOD COUNT 3.65 MIL/MM3 (4.00-5.30); RED CELL DISTRIBUTION WIDTH 26.8 % (11.6-17.2); WHITE BLOOD COUNT 4.5 TH/MM3 (4.0-11.0)
[2017-11-19 01:43] LABS: HEMO FLAGS AUTO DIFF
[2017-11-19 01:50] LABS: INTERNATIONAL NORMALIZED RATIO 1.5 RATIO; PROTHROMBIN TIME - PATIENT 15.4 SEC (9.8-11.6)
[2017-11-19 02:10] LABS: ALBUMIN 2.1 GM/DL (3.4-5.0); ALKALINE PHOSPHATASE 65 U/L (45-117); ALT (GPT) 22 U/L (10-53); ANION GAP 5 MEQ/L (5-15); AST (GOT) 34 U/L (15-37); BICARBONATE 29.6 MEQ/L (21.0-32.0); BLOOD UREA NITROGEN 55 MG/DL (7-18); CALCIUM 8.3 MG/DL (8.5-10.1); CHLORIDE 110 MEQ/L (98-107); CREATININE 1.63 MG/DL (0.50-1.00); GLOMERULAR FILTRATION RATE 30 ML/MIN (>89); GLUCOSE,RANDOM 266 MG/DL (74-106); POTASSIUM 4.6 MEQ/L (3.5-5.1); SODIUM (NA) 145 MEQ/L (136-145); TOTAL BILIRUBIN ADULT 0.7 MG/DL (0.2-1.0); TOTAL PROTEIN 6.7 GM/DL (6.4-8.2); VANCOMYCIN TROUGH 37.9 MCG/ML (5.0-10.0)
[2017-11-19] MEDS: PROPOFOL 1000 MG/100 ML INJ 100 ML IV ×2 (02:44→09:13)
[2017-11-19 03:20] LABS: BANDS 5 % (0-6); CORRECTED NUCLEATED RBC 1 /100 WBC (0-0); LYMPHOCYTES 2 % (9-44); NEUTROPHIL # MANUAL DIFF 4.4 TH/MM3 (1.8-7.7); NUCLEATED RED BLOOD CELL 1 (0-0); POLYS (SEG NEUTROPHILS) 93 % (16-70); SCAN/DIFF FINAL DIFF MANUAL; WBC DIFF SAMPLE 100
[2017-11-19 03:22] LABS: PLATELET ESTIMATE SMEAR LOW (NORMAL); PLATELET MORPHOLOGY NORMAL (NORMAL)
[2017-11-19 03:23] LABS: ACANTHOCYTES OCC (NORMAL); OVALOCYTES 1+ (NORMAL)
[2017-11-19] MEDS: INSULIN ASPART SUPPLEMENTAL SCALE SQ ×6 (04:00→20:00)
[2017-11-19] MEDS: RESP: ALBUTEROL 2.5 MG/IPRATROPIUM 0.5 MG NEB (SCH) NEB ×6 (04:23→23:51)
[2017-11-19] MEDS: LEVOTHYROXINE SODIUM 25 MCG TAB PO (06:00)
[2017-11-19] MEDS: methylPREDNISolone SOD SUCC 40 MG/1 ML VIAL IV PUSH ×3 (06:00→20:20)
[2017-11-19 06:10] LABS: BLOOD GAS BASE EXCESS 2.5 mmol/L (-2-2); BLOOD GAS CARBOXYHEMOGLOBIN 0.9 % (0-4); BLOOD GAS HCO3 29 mmol/L (22-26); BLOOD GAS METHEMOGLOBIN 1.9 % (0-2); BLOOD GAS O2 HGB SATURATION 95 % (90-100); BLOOD GAS OXYGEN CONTENT 13.9 Vol % (12.0-20.0); BLOOD GAS PCO2 65 mmHg (38-42); BLOOD GAS PO2 116 mmHg (61-120); BLOOD GAS TOTAL HGB 10.3 G/DL (12.0-16.0); CRITICAL VALUE YES; TEMP CORR TO 98.6
[2017-11-19 06:11] LABS: DRAW SITE RT BRACHIAL; FIO2 40 %; NUMBER OF ARTERIAL PUNCTURES 1; STAT NO
[2017-11-19] MEDS: FAMOTIDINE 20 MG/2 ML VIAL IV PUSH ×2 (08:39→20:19)
[2017-11-19] MEDS: INSULIN DETEMIR 100 UNITS/ML VIAL SQ ×2 (08:39→20:21)
[2017-11-19] MEDS: CITALOPRAM HYDROBROMIDE 20 MG TAB PO (08:40)
[2017-11-19] MEDS: HEPARIN SODIUM - SQ 10,000 UNITS/ML VIAL SQ ×2 (08:40→20:20)
[2017-11-19] MEDS: DOCUSATE SODIUM 50 MG/SENNA 8.6 MG TAB PO ×2 (08:40→20:19)
[2017-11-19] MEDS: CHLORHEXIDINE 0.12% (ORAL KIT) 15 ML CUP MT ×2 (08:42→20:00)
[2017-11-19] MEDS: SODIUM CHLORIDE 0.9% FLUSH 10 ML FLUSH IV FLUSH ×2 (08:43→20:20)
[2017-11-19] MEDS: ZEBETA 5 MG PO (09:00)
[2017-11-19] MEDS: SODIUM CHLOR 0.9% 1000 ML INJ 1,000 ML IV (12:07)
[2017-11-19] MEDS: CEFEPIME INJ 2,000 MG in SODIUM CHLORIDE 0.9% INJ 100 ML IV ×2 (13:00→22:55)
[2017-11-19] MEDS: METOPROLOL TARTRATE 5 MG/5 ML VIAL IV PUSH (13:28)
[2017-11-19] MEDS: CARVEDILOL 3.125 MG TAB PO ×2 (13:56→20:20)
[2017-11-19] MEDS ORDERED: PHARMACY ORDERED LAB (22:45)
[2017-11-20] MEDS: INSULIN ASPART SUPPLEMENTAL SCALE SQ ×6 (04:00→21:20)
[2017-11-20] MEDS: RESP: ALBUTEROL 2.5 MG/IPRATROPIUM 0.5 MG NEB (SCH) NEB ×6 (04:15→23:15)
[2017-11-20 06:05] LABS: ANION GAP 6 MEQ/L (5-15); BICARBONATE 27.6 MEQ/L (21.0-32.0); CALCIUM 8.3 MG/DL (8.5-10.1); CHLORIDE 116 MEQ/L (98-107); CREATININE 1.55 MG/DL (0.50-1.00); GLOMERULAR FILTRATION RATE 32 ML/MIN (>89); GLUCOSE,RANDOM 177 MG/DL (74-106); PHOSPHORUS 3.2 MG/DL (2.5-4.9); POTASSIUM 4.7 MEQ/L (3.5-5.1); SODIUM (NA) 150 MEQ/L (136-145)
[2017-11-20 06:06] LABS: BLOOD UREA NITROGEN 75 MG/DL (7-18)
[2017-11-20 06:11] LABS: BLOOD GAS BASE EXCESS 2.8 mmol/L (-2-2); BLOOD GAS CARBOXYHEMOGLOBIN 0.9 % (0-4); BLOOD GAS HCO3 27 mmol/L (22-26); BLOOD GAS METHEMOGLOBIN 1.9 % (0-2); BLOOD GAS O2 HGB SATURATION 93 % (90-100); BLOOD GAS OXYGEN CONTENT 13.9 Vol % (12.0-20.0); BLOOD GAS PCO2 43 mmHg (38-42); BLOOD GAS PO2 84 mmHg (61-120); BLOOD GAS TOTAL HGB 10.6 G/DL (12.0-16.0); CRITICAL VALUE NO; OXYGEN DEVICE VENTILATOR; TEMP CORR TO 98.6
[2017-11-20 06:12] LABS: DRAW SITE LT RADIAL; FIO2 40 %; NUMBER OF ARTERIAL PUNCTURES 1; STAT NO; ULNAR PULSE PRESENT
[2017-11-20] MEDS: LEVOTHYROXINE SODIUM 25 MCG TAB PO (06:18)
[2017-11-20 07:32] LABS: AUTOMATED NEUTROPHIL # 6.4 TH/MM3 (1.8-7.7); BASOPHIL % 0.1 % (0.0-2.0); EOSINOPHIL % 0.3 % (0.0-4.0); HEMATOCRIT 33.5 % (35.0-46.0); LYMPH % 3.3 % (9.0-44.0); LYMPHOCYTE # 0.2 TH/MM3 (1.0-4.8); MEAN CELL VOLUME 88.4 FL (80.0-100.0); MEAN CORPUSCULAR HGB CONC 32.8 % (32.0-36.0); MEAN PLATELET VOLUME 9.6 FL (7.0-11.0); MONO % 2.6 % (0.0-8.0); MONOCYTE # 0.2 TH/MM3 (0-0.9); NEUT % 93.7 % (16.0-70.0); PLATELET COUNT 144 TH/MM3 (150-450); RED BLOOD COUNT 3.79 MIL/MM3 (4.00-5.30); WHITE BLOOD COUNT 6.8 TH/MM3 (4.0-11.0)
[2017-11-20 07:50] LABS: HEMO FLAGS AUTO DIFF
[2017-11-20] MEDS: CHLORHEXIDINE 0.12% (ORAL KIT) 15 ML CUP MT ×2 (08:00→21:20)
[2017-11-20 08:31] LABS: SCAN/DIFF AUTO DIFF CONFIRMED
[2017-11-20 08:32] LABS: PLATELET ESTIMATE SMEAR LOW (NORMAL); PLATELET MORPHOLOGY NORMAL (NORMAL)
[2017-11-20] MEDS: ZEBETA 5 MG PO (09:00)
[2017-11-20] MEDS: DOCUSATE SODIUM 50 MG/SENNA 8.6 MG TAB PO ×2 (09:00→21:21)
[2017-11-20] MEDS: HEPARIN SODIUM - SQ 10,000 UNITS/ML VIAL SQ ×2 (09:00→21:00)
[2017-11-20] MEDS: INSULIN DETEMIR 100 UNITS/ML VIAL SQ ×2 (09:00→21:21)
[2017-11-20] MEDS: SODIUM CHLORIDE 0.9% FLUSH 10 ML FLUSH IV FLUSH ×2 (09:00→21:00)
[2017-11-20] MEDS: methylPREDNISolone SOD SUCC 40 MG/1 ML VIAL IV PUSH ×2 (09:00→21:21)
[2017-11-20] MEDS: CARVEDILOL 3.125 MG TAB PO ×2 (09:00→21:21)
[2017-11-20] MEDS: CITALOPRAM HYDROBROMIDE 20 MG TAB PO (09:00)
[2017-11-20 09:05] LABS: INTERNATIONAL NORMALIZED RATIO 1.4 RATIO; PROTHROMBIN TIME - PATIENT 13.7 SEC (9.8-11.6)
[2017-11-20] MEDS: FAMOTIDINE 20 MG/2 ML VIAL IV PUSH ×2 (09:30→21:21)
[2017-11-20] MEDS: CEFEPIME INJ 2,000 MG in SODIUM CHLORIDE 0.9% INJ 100 ML IV (10:00)
[2017-11-20] MEDS: DEXTROSE 5% IN WATE 1000ML INJ 1,000 ML IV (11:00)
[2017-11-20] MEDS ORDERED: CEFEPIME INJ 2,000 MG in SODIUM CHLORIDE 0.9% INJ 100 ML IV (11:45)
[2017-11-20] MEDS: ACETAMINOPHEN 325 MG TAB PO (14:22)
[2017-11-21] MEDS: INSULIN ASPART SUPPLEMENTAL SCALE SQ ×6 (00:43→20:00)
[2017-11-21] MEDS: RESP: ALBUTEROL 2.5 MG/IPRATROPIUM 0.5 MG NEB (SCH) NEB ×5 (03:58→21:56)
[2017-11-21] MEDS: LEVOTHYROXINE SODIUM 25 MCG TAB PO (04:42)
[2017-11-21 05:03] LABS: INTERNATIONAL NORMALIZED RATIO 1.3 RATIO; PROTHROMBIN TIME - PATIENT 13.3 SEC (9.8-11.6)
[2017-11-21 05:13] LABS: ALT (GPT) 29 U/L (10-53); ANION GAP 6 MEQ/L (5-15); AST (GOT) 43 U/L (15-37); BICARBONATE 27.4 MEQ/L (21.0-32.0); CALCIUM 8.4 MG/DL (8.5-10.1); CHLORIDE 116 MEQ/L (98-107); CREATININE 1.49 MG/DL (0.50-1.00); GLOMERULAR FILTRATION RATE 34 ML/MIN (>89); GLUCOSE,RANDOM 200 MG/DL (74-106); POTASSIUM 4.7 MEQ/L (3.5-5.1); SODIUM (NA) 149 MEQ/L (136-145)
[2017-11-21 05:16] LABS: ALKALINE PHOSPHATASE 62 U/L (45-117); BLOOD UREA NITROGEN 80 MG/DL (7-18); TOTAL PROTEIN 6.6 GM/DL (6.4-8.2)
[2017-11-21 06:26] LABS: BASOPHIL % 0.2 % (0.0-2.0); HEMATOCRIT 32.5 % (35.0-46.0); HEMOGLOBIN 10.7 GM/DL (11.6-15.3); LYMPH % 5.3 % (9.0-44.0); LYMPHOCYTE # 0.3 TH/MM3 (1.0-4.8); MEAN CELL VOLUME 89.3 FL (80.0-100.0); MEAN CORPUSCULAR HEMOGLOBIN 29.3 PG (27.0-34.0); MEAN CORPUSCULAR HGB CONC 32.8 % (32.0-36.0); MEAN PLATELET VOLUME 8.6 FL (7.0-11.0); MONO % 3.9 % (0.0-8.0); MONOCYTE # 0.2 TH/MM3 (0-0.9); NEUT % 90.6 % (16.0-70.0); PLATELET COUNT 119 TH/MM3 (150-450); RED BLOOD COUNT 3.64 MIL/MM3 (4.00-5.30); RED CELL DISTRIBUTION WIDTH 26.8 % (11.6-17.2); WHITE BLOOD COUNT 5.5 TH/MM3 (4.0-11.0)
[2017-11-21 06:32] LABS: HEMO FLAGS AUTO DIFF
[2017-11-21] MEDS: RESP: ALBUTEROL 2.5 MG/IPRATROPIUM 0.5 MG NEB (PRN) NEB (07:29)
[2017-11-21] MEDS: FUROSEMIDE 40 MG/4 ML VIAL IV PUSH ×2 (07:45→07:58)
[2017-11-21] MEDS: ALBUMIN 25% INJ 50 ML IV (07:51)
[2017-11-21] MEDS: CHLORHEXIDINE 0.12% (ORAL KIT) 15 ML CUP MT ×2 (08:00→20:00)
[2017-11-21 08:11] LABS: SCAN/DIFF AUTO DIFF CONFIRMED
[2017-11-21] MEDS: SODIUM CHLORIDE 0.9% FLUSH 10 ML FLUSH IV FLUSH ×2 (09:00→21:39)
[2017-11-21] MEDS: ZEBETA 5 MG PO (09:00)
[2017-11-21] MEDS: DOCUSATE SODIUM 50 MG/SENNA 8.6 MG TAB PO ×2 (09:06→21:39)
[2017-11-21] MEDS: methylPREDNISolone SOD SUCC 40 MG/1 ML VIAL IV PUSH ×2 (09:06→21:39)
[2017-11-21] MEDS: CITALOPRAM HYDROBROMIDE 20 MG TAB PO (09:06)
[2017-11-21] MEDS: INSULIN DETEMIR 100 UNITS/ML VIAL SQ ×2 (09:07→21:39)
[2017-11-21] MEDS: CARVEDILOL 3.125 MG TAB PO ×2 (09:07→21:39)
[2017-11-21] MEDS: FAMOTIDINE 20 MG/2 ML VIAL IV PUSH ×2 (10:01→21:30)
[2017-11-21] MEDS: CEFEPIME INJ 2,000 MG in SODIUM CHLORIDE 0.9% INJ 100 ML IV (10:04)
[2017-11-21 10:08] LABS: BLOOD GAS BASE EXCESS 4.1 mmol/L (-2-2); BLOOD GAS CARBOXYHEMOGLOBIN 0.9 % (0-4); BLOOD GAS HCO3 28 mmol/L (22-26); BLOOD GAS METHEMOGLOBIN 1.9 % (0-2); BLOOD GAS O2 HGB SATURATION 93 % (90-100); BLOOD GAS OXYGEN CONTENT 15.3 Vol % (12.0-20.0); BLOOD GAS PCO2 41 mmHg (38-42); BLOOD GAS PO2 91 mmHg (61-120); BLOOD GAS TOTAL HGB 11.6 G/DL (12.0-16.0); CRITICAL VALUE NO; FIO2 40 %; OXYGEN DEVICE VENTILATOR; TEMP CORR TO 98.6; VENT SETTINGS CPAP PS5/PEEP5
[2017-11-21 10:09] LABS: DRAW SITE LT RADIAL; NUMBER OF ARTERIAL PUNCTURES 1; STAT NO; ULNAR PULSE PRESENT
[2017-11-21] MEDS: FUROSEMIDE 20 MG/2 ML VIAL IV PUSH (17:00)
[2017-11-21] MEDS: DILTIAZEM HCL 60 MG TAB PO ×2 (17:52→21:39)
[2017-11-22] MEDS: RESP: ALBUTEROL 2.5 MG/IPRATROPIUM 0.5 MG NEB (SCH) NEB ×5 (00:38→21:30)
[2017-11-22] MEDS: INSULIN ASPART SUPPLEMENTAL SCALE SQ ×6 (04:00→20:00)
[2017-11-22 04:59] LABS: INTERNATIONAL NORMALIZED RATIO 1.3 RATIO; PROTHROMBIN TIME - PATIENT 13.4 SEC (9.8-11.6)
[2017-11-22 05:04] LABS: AUTOMATED NEUTROPHIL # 6.5 TH/MM3 (1.8-7.7); BASOPHIL % 0.1 % (0.0-2.0); HEMATOCRIT 32.7 % (35.0-46.0); HEMOGLOBIN 10.7 GM/DL (11.6-15.3); LYMPH % 4.5 % (9.0-44.0); LYMPHOCYTE # 0.3 TH/MM3 (1.0-4.8); MEAN CELL VOLUME 89.3 FL (80.0-100.0); MEAN CORPUSCULAR HEMOGLOBIN 29.3 PG (27.0-34.0); MEAN CORPUSCULAR HGB CONC 32.8 % (32.0-36.0); MEAN PLATELET VOLUME 8.9 FL (7.0-11.0); MONOCYTE # 0.1 TH/MM3 (0-0.9); NEUT % 93.4 % (16.0-70.0); PLATELET COUNT 133 TH/MM3 (150-450); RED BLOOD COUNT 3.66 MIL/MM3 (4.00-5.30); RED CELL DISTRIBUTION WIDTH 26.7 % (11.6-17.2)
[2017-11-22 05:08] LABS: HEMO FLAGS AUTO DIFF
[2017-11-22 05:12] LABS: ALBUMIN 2.1 GM/DL (3.4-5.0); ALT (GPT) 34 U/L (10-53); ANION GAP 7 MEQ/L (5-15); AST (GOT) 46 U/L (15-37); BLOOD UREA NITROGEN 74 MG/DL (7-18); CALCIUM 8.4 MG/DL (8.5-10.1); CHLORIDE 114 MEQ/L (98-107); CREATININE 1.43 MG/DL (0.50-1.00); GLOMERULAR FILTRATION RATE 35 ML/MIN (>89); GLUCOSE,RANDOM 155 MG/DL (74-106); SODIUM (NA) 150 MEQ/L (136-145)
[2017-11-22 05:14] LABS: ALKALINE PHOSPHATASE 63 U/L (45-117); TOTAL BILIRUBIN ADULT 1.2 MG/DL (0.2-1.0); TOTAL PROTEIN 6.5 GM/DL (6.4-8.2)
[2017-11-22] MEDS: LEVOTHYROXINE SODIUM 25 MCG TAB PO (05:52)
[2017-11-22 07:04] LABS: ACANTHOCYTES OCC (NORMAL); OVALOCYTES 1+ (NORMAL); PLATELET ESTIMATE SMEAR LOW (NORMAL); PLATELET MORPHOLOGY NORMAL (NORMAL); SCAN/DIFF AUTO DIFF CONFIRMED
[2017-11-22] MEDS: CHLORHEXIDINE 0.12% (ORAL KIT) 15 ML CUP MT ×2 (08:00→20:00)
[2017-11-22] MEDS: SODIUM CHLORIDE 23.4% INJ 38.5 MEQ in WATER STERILE FOR INJ 1,000 ML IV (08:33)
[2017-11-22] MEDS: SODIUM CHLORIDE 0.9% FLUSH 10 ML FLUSH IV FLUSH ×2 (08:34→21:31)
[2017-11-22] MEDS: DOCUSATE SODIUM 50 MG/SENNA 8.6 MG TAB PO ×2 (08:49→21:32)
[2017-11-22] MEDS: DILTIAZEM HCL 60 MG TAB PO ×4 (08:49→21:32)
[2017-11-22] MEDS: CARVEDILOL 3.125 MG TAB PO ×2 (08:50→21:32)
[2017-11-22] MEDS: FAMOTIDINE 20 MG/2 ML VIAL IV PUSH ×2 (08:50→21:32)
[2017-11-22] MEDS: methylPREDNISolone SOD SUCC 40 MG/1 ML VIAL IV PUSH ×2 (08:50→21:32)
[2017-11-22] MEDS: CITALOPRAM HYDROBROMIDE 20 MG TAB PO (08:50)
[2017-11-22] MEDS: FUROSEMIDE 20 MG/2 ML VIAL IV PUSH ×2 (08:51→17:43)
[2017-11-22] MEDS: INSULIN DETEMIR 100 UNITS/ML VIAL SQ ×2 (08:51→21:00)
[2017-11-22] MEDS: ZEBETA 5 MG PO (09:00)
[2017-11-22] MEDS: CEFEPIME INJ 2,000 MG in SODIUM CHLORIDE 0.9% INJ 100 ML IV (11:21)
[2017-11-23] MEDS: INSULIN ASPART SUPPLEMENTAL SCALE SQ ×7 (04:00→23:59)
[2017-11-23] MEDS: RESP: ALBUTEROL 2.5 MG/IPRATROPIUM 0.5 MG NEB (SCH) NEB ×4 (04:45→21:40)
[2017-11-23 04:55] LABS: AUTOMATED NEUTROPHIL # 5.2 TH/MM3 (1.8-7.7); BASOPHIL % 0.1 % (0.0-2.0); HEMATOCRIT 30.8 % (35.0-46.0); HEMOGLOBIN 10.2 GM/DL (11.6-15.3); LYMPHOCYTE # 0.3 TH/MM3 (1.0-4.8); MEAN CELL VOLUME 88.5 FL (80.0-100.0); MEAN CORPUSCULAR HEMOGLOBIN 29.5 PG (27.0-34.0); MEAN CORPUSCULAR HGB CONC 33.3 % (32.0-36.0); MEAN PLATELET VOLUME 8.8 FL (7.0-11.0); MONOCYTE # 0.2 TH/MM3 (0-0.9); NEUT % 90.9 % (16.0-70.0); PLATELET COUNT 103 TH/MM3 (150-450); RED BLOOD COUNT 3.48 MIL/MM3 (4.00-5.30); RED CELL DISTRIBUTION WIDTH 25.4 % (11.6-17.2); WHITE BLOOD COUNT 5.7 TH/MM3 (4.0-11.0)
[2017-11-23 05:16] LABS: HEMO FLAGS AUTO DIFF
[2017-11-23 05:24] LABS: ALKALINE PHOSPHATASE 62 U/L (45-117); ALT (GPT) 39 U/L (10-53); ANION GAP 8 MEQ/L (5-15); AST (GOT) 52 U/L (15-37); BICARBONATE 26.2 MEQ/L (21.0-32.0); BLOOD UREA NITROGEN 70 MG/DL (7-18); CHLORIDE 106 MEQ/L (98-107); CREATININE 1.29 MG/DL (0.50-1.00); GLOMERULAR FILTRATION RATE 40 ML/MIN (>89); GLUCOSE,RANDOM 174 MG/DL (74-106); MAGNESIUM 2.3 MG/DL (1.5-2.5); POTASSIUM 3.6 MEQ/L (3.5-5.1); SODIUM (NA) 140 MEQ/L (136-145); TOTAL BILIRUBIN ADULT 1.6 MG/DL (0.2-1.0); TOTAL PROTEIN 6.1 GM/DL (6.4-8.2)
[2017-11-23] MEDS: LEVOTHYROXINE SODIUM 25 MCG TAB PO (05:34)
[2017-11-23] MEDS: BISACODYL 10 MG SUPP RECTAL (05:36)
[2017-11-23] MEDS: SODIUM CHLORIDE 23.4% INJ 38.5 MEQ in WATER STERILE FOR INJ 1,000 ML IV (06:41)
[2017-11-23 06:59] LABS: KERATOCYTES OCC (NORMAL); OVALOCYTES 2+ (NORMAL); PLATELET ESTIMATE SMEAR LOW (NORMAL); PLATELET MORPHOLOGY NORMAL (NORMAL); SCAN/DIFF AUTO DIFF CONFIRMED; TEARDROP RBCS 1+ (NORMAL)
[2017-11-23 07:55] LABS: INTERNATIONAL NORMALIZED RATIO 1.3 RATIO; PROTHROMBIN TIME - PATIENT 13.5 SEC (9.8-11.6)
[2017-11-23] MEDS: CHLORHEXIDINE 0.12% (ORAL KIT) 15 ML CUP MT ×2 (08:00→20:00)
[2017-11-23] MEDS: SODIUM CHLORIDE 0.9% FLUSH 10 ML FLUSH IV FLUSH ×2 (08:45→20:33)
[2017-11-23] MEDS: methylPREDNISolone SOD SUCC 40 MG/1 ML VIAL IV PUSH ×2 (08:45→20:33)
[2017-11-23] MEDS: FAMOTIDINE 20 MG/2 ML VIAL IV PUSH (08:45)
[2017-11-23] MEDS: INSULIN DETEMIR 100 UNITS/ML VIAL SQ ×2 (08:45→20:33)
[2017-11-23] MEDS: DILTIAZEM HCL 60 MG TAB PO ×4 (08:46→20:34)
[2017-11-23] MEDS: FUROSEMIDE 20 MG/2 ML VIAL IV PUSH ×2 (08:46→18:35)
[2017-11-23] MEDS: ZEBETA 5 MG PO (08:46)
[2017-11-23] MEDS: DOCUSATE SODIUM 50 MG/SENNA 8.6 MG TAB PO ×2 (08:46→20:34)
[2017-11-23] MEDS: CITALOPRAM HYDROBROMIDE 20 MG TAB PO (08:46)
[2017-11-23] MEDS: CARVEDILOL 3.125 MG TAB PO ×2 (08:46→20:34)
[2017-11-23] MEDS: CEFEPIME INJ 2,000 MG in SODIUM CHLORIDE 0.9% INJ 100 ML IV (09:33)
[2017-11-23] MEDS: WARFARIN SOD 2 MG TAB PO (20:33)
[2017-11-23] MEDS: FAMOTIDINE 20 MG TAB PO (20:34)
[2017-11-23] MEDS: ALPRAZolam 0.25 MG TAB PO (23:52)
[2017-11-24] MEDS: RESP: ALBUTEROL 2.5 MG/IPRATROPIUM 0.5 MG NEB (SCH) NEB ×4 (03:18→21:06)
[2017-11-24] MEDS: INSULIN ASPART SUPPLEMENTAL SCALE SQ ×5 (04:00→20:42)
[2017-11-24] MEDS: LEVOTHYROXINE SODIUM 25 MCG TAB PO (06:00)
[2017-11-24 07:37] LABS: AUTOMATED NEUTROPHIL # 5.2 TH/MM3 (1.8-7.7); BASOPHIL % 0.5 % (0.0-2.0); EOSINOPHIL % 0.2 % (0.0-4.0); HEMATOCRIT 29.4 % (35.0-46.0); LYMPH % 4.3 % (9.0-44.0); LYMPHOCYTE # 0.2 TH/MM3 (1.0-4.8); MEAN CELL VOLUME 87.6 FL (80.0-100.0); MEAN CORPUSCULAR HEMOGLOBIN 29.9 PG (27.0-34.0); MEAN CORPUSCULAR HGB CONC 34.1 % (32.0-36.0); MEAN PLATELET VOLUME 8.8 FL (7.0-11.0); MONO % 3.9 % (0.0-8.0); MONOCYTE # 0.2 TH/MM3 (0-0.9); NEUT % 91.1 % (16.0-70.0); PLATELET COUNT 101 TH/MM3 (150-450); RED BLOOD COUNT 3.36 MIL/MM3 (4.00-5.30); RED CELL DISTRIBUTION WIDTH 24.6 % (11.6-17.2); WHITE BLOOD COUNT 5.7 TH/MM3 (4.0-11.0)
[2017-11-24 07:39] LABS: INTERNATIONAL NORMALIZED RATIO 1.3 RATIO; PROTHROMBIN TIME - PATIENT 12.8 SEC (9.8-11.6)
[2017-11-24 07:40] LABS: HEMO FLAGS AUTO DIFF
[2017-11-24 07:45] LABS: ALT (GPT) 47 U/L (10-53); ANION GAP 9 MEQ/L (5-15); AST (GOT) 51 U/L (15-37); BICARBONATE 25.9 MEQ/L (21.0-32.0); BLOOD UREA NITROGEN 64 MG/DL (7-18); CHLORIDE 106 MEQ/L (98-107); CREATININE 1.23 MG/DL (0.50-1.00); DIRECT BILIRUBIN ADULT 0.5 MG/DL (0.0-0.2); GLOMERULAR FILTRATION RATE 42 ML/MIN (>89); GLUCOSE,RANDOM 122 MG/DL (74-106); MAGNESIUM 2.4 MG/DL (1.5-2.5); PHOSPHORUS 3.3 MG/DL (2.5-4.9); POTASSIUM 3.8 MEQ/L (3.5-5.1); SODIUM (NA) 141 MEQ/L (136-145)
[2017-11-24 07:47] LABS: ALKALINE PHOSPHATASE 63 U/L (45-117); INDIRECT BILIRUBIN 0.9 MG/DL (0.0-0.8); TOTAL BILIRUBIN ADULT 1.4 MG/DL (0.2-1.0); TOTAL PROTEIN 5.9 GM/DL (6.4-8.2)
[2017-11-24] MEDS: CHLORHEXIDINE 0.12% (ORAL KIT) 15 ML CUP MT ×2 (08:00→20:00)
[2017-11-24] MEDS: CITALOPRAM HYDROBROMIDE 20 MG TAB PO (08:58)
[2017-11-24] MEDS: FUROSEMIDE 20 MG/2 ML VIAL IV PUSH (08:58)
[2017-11-24] MEDS: SODIUM CHLORIDE 0.9% FLUSH 10 ML FLUSH IV FLUSH ×2 (08:58→20:42)
[2017-11-24] MEDS: DILTIAZEM HCL 60 MG TAB PO ×4 (08:58→20:42)
[2017-11-24] MEDS: FAMOTIDINE 20 MG TAB PO ×2 (08:58→20:42)
[2017-11-24] MEDS: methylPREDNISolone SOD SUCC 40 MG/1 ML VIAL IV PUSH ×2 (08:58→20:42)
[2017-11-24] MEDS: INSULIN DETEMIR 100 UNITS/ML VIAL SQ ×2 (08:59→20:42)
[2017-11-24] MEDS: DOCUSATE SODIUM 50 MG/SENNA 8.6 MG TAB PO ×2 (08:59→20:42)
[2017-11-24] MEDS: CARVEDILOL 3.125 MG TAB PO ×2 (08:59→20:42)
[2017-11-24] MEDS: ZEBETA 5 MG PO (09:00)
[2017-11-24 09:05] LABS: B-TYPE NATRIURETIC PEPTIDE 375 PG/ML (0-100)
[2017-11-24 09:54] LABS: ACANTHOCYTES OCC (NORMAL); OVALOCYTES 1+ (NORMAL); SCAN/DIFF AUTO DIFF CONFIRMED
[2017-11-24] MEDS: SACUBITRIL/VALSARTAN 24 MG-26 MG TAB PO (13:21)
[2017-11-24] MEDS: TEMAZEPAM 7.5 MG CAP PO (20:42)
[2017-11-24] MEDS: APIXABAN 5 MG TABLET PO (20:42)
[2017-11-25] MEDS: INSULIN ASPART SUPPLEMENTAL SCALE SQ ×7 (00:08→23:40)
[2017-11-25] MEDS: RESP: ALBUTEROL 2.5 MG/IPRATROPIUM 0.5 MG NEB (SCH) NEB ×4 (04:10→21:07)
[2017-11-25 05:01] LABS: ANION GAP 8 MEQ/L (5-15); BICARBONATE 25.9 MEQ/L (21.0-32.0); BLOOD UREA NITROGEN 58 MG/DL (7-18); CHLORIDE 107 MEQ/L (98-107); CREATININE 1.29 MG/DL (0.50-1.00); GLOMERULAR FILTRATION RATE 40 ML/MIN (>89); GLUCOSE,RANDOM 157 MG/DL (74-106); POTASSIUM 3.6 MEQ/L (3.5-5.1); SODIUM (NA) 141 MEQ/L (136-145)
[2017-11-25] MEDS: LEVOTHYROXINE SODIUM 25 MCG TAB PO (05:50)
[2017-11-25] MEDS: CHLORHEXIDINE 0.12% (ORAL KIT) 15 ML CUP MT ×2 (08:00→20:00)
[2017-11-25] MEDS ORDERED: TORSEMIDE 20 MG TAB PO (09:00)
[2017-11-25] MEDS: ZEBETA 5 MG PO (09:00)
[2017-11-25] MEDS: INSULIN DETEMIR 100 UNITS/ML VIAL SQ ×2 (09:29→21:05)
[2017-11-25] MEDS: BISOPROLOL FUMARATE 5 MG TAB PO (09:34)
[2017-11-25] MEDS: methylPREDNISolone SOD SUCC 40 MG/1 ML VIAL IV PUSH ×2 (09:34→21:06)
[2017-11-25] MEDS: DOCUSATE SODIUM 50 MG/SENNA 8.6 MG TAB PO ×2 (09:34→21:06)
[2017-11-25] MEDS: FAMOTIDINE 20 MG TAB PO ×2 (09:34→21:06)
[2017-11-25] MEDS: SENNOSIDES 8.6 MG TAB PO (09:35)
[2017-11-25] MEDS: APIXABAN 5 MG TABLET PO ×2 (09:38→21:06)
[2017-11-25] MEDS: SACUBITRIL/VALSARTAN 24 MG-26 MG TAB PO ×2 (09:39→21:07)
[2017-11-25] MEDS: DILTIAZEM HCL 60 MG TAB PO ×4 (09:39→21:07)
[2017-11-25] MEDS: CITALOPRAM HYDROBROMIDE 20 MG TAB PO (09:39)
[2017-11-25] MEDS: SODIUM CHLORIDE 0.9% FLUSH 10 ML FLUSH IV FLUSH ×2 (09:41→21:06)
[2017-11-25 10:48] LABS: BILIRUBIN, URINE NEG (NEG); BLOOD, URINE SMALL (NEG); GLUCOSE,URINE NEG (NEG); KETONE, URINE NEG (NEG); MUCUS URINE FEW /lpf (OCC); NITRITE,URINE NEG (NEG); PH, URINE 5.5 (5.0-8.5); RENAL EPITHELIAL CELLS <1 /hpf; URINE COLOR YELLOW (YELLW/STRAW); URINE LEUKOCYTE ESTERASE NEG (NEG)
[2017-11-25 10:49] LABS: COMMENT (UR) CULT NOT INDICATED; CULTURE IF INDICATED CULT NOT INDICATED
[2017-11-25] MEDS: TORSEMIDE 20 MG TAB PO (16:27)
[2017-11-25] MEDS: POTASSIUM CHLORIDE 20 MEQ CONTROLLED RELEASE TAB PO ×2 (16:27→21:07)
[2017-11-26 03:34] LABS: AUTOMATED NEUTROPHIL # 7.4 TH/MM3 (1.8-7.7); BASOPHIL % 0.1 % (0.0-2.0); HEMATOCRIT 29.9 % (35.0-46.0); HEMOGLOBIN 10.1 GM/DL (11.6-15.3); LYMPH % 2.3 % (9.0-44.0); LYMPHOCYTE # 0.2 TH/MM3 (1.0-4.8); MEAN CELL VOLUME 88.4 FL (80.0-100.0); MEAN CORPUSCULAR HEMOGLOBIN 29.8 PG (27.0-34.0); MEAN CORPUSCULAR HGB CONC 33.7 % (32.0-36.0); MONO % 4.9 % (0.0-8.0); MONOCYTE # 0.4 TH/MM3 (0-0.9); NEUT % 92.7 % (16.0-70.0); PLATELET COUNT 120 TH/MM3 (150-450); RED BLOOD COUNT 3.38 MIL/MM3 (4.00-5.30); RED CELL DISTRIBUTION WIDTH 24.4 % (11.6-17.2)
[2017-11-26 03:37] LABS: HEMO FLAGS AUTO DIFF
[2017-11-26 03:54] LABS: ALT (GPT) 77 U/L (10-53); ANION GAP 8 MEQ/L (5-15); BICARBONATE 26.9 MEQ/L (21.0-32.0); BLOOD UREA NITROGEN 61 MG/DL (7-18); CALCIUM 7.7 MG/DL (8.5-10.1); CHLORIDE 106 MEQ/L (98-107); GLUCOSE,RANDOM 184 MG/DL (74-106); MAGNESIUM 2.3 MG/DL (1.5-2.5); POTASSIUM 4.1 MEQ/L (3.5-5.1); SODIUM (NA) 141 MEQ/L (136-145)
[2017-11-26 03:57] LABS: ALKALINE PHOSPHATASE 68 U/L (45-117); AST (GOT) 63 U/L (15-37); CREATININE 1.39 MG/DL (0.50-1.00); GLOMERULAR FILTRATION RATE 36 ML/MIN (>89); TOTAL BILIRUBIN ADULT 0.9 MG/DL (0.2-1.0); TOTAL PROTEIN 5.7 GM/DL (6.4-8.2)
[2017-11-26] MEDS: INSULIN ASPART SUPPLEMENTAL SCALE SQ ×3 (04:00→11:23)
[2017-11-26 04:07] LABS: B-TYPE NATRIURETIC PEPTIDE 394 PG/ML (0-100)
[2017-11-26 04:14] LABS: AMMONIA 37 MCMOL/L (11-32)
[2017-11-26] MEDS: RESP: ALBUTEROL 2.5 MG/IPRATROPIUM 0.5 MG NEB (SCH) NEB ×2 (04:42→10:23)
[2017-11-26] MEDS: LEVOTHYROXINE SODIUM 25 MCG TAB PO (06:20)
[2017-11-26 07:12] LABS: ACANTHOCYTES OCC (NORMAL); OVALOCYTES 1+ (NORMAL); PLATELET ESTIMATE SMEAR LOW (NORMAL); PLATELET MORPHOLOGY NORMAL (NORMAL); SCAN/DIFF AUTO DIFF CONFIRMED
[2017-11-26] MEDS: INSULIN DETEMIR 100 UNITS/ML VIAL SQ (08:52)
[2017-11-26] MEDS: APIXABAN 5 MG TABLET PO (08:53)
[2017-11-26] MEDS: FAMOTIDINE 20 MG TAB PO (08:53)
[2017-11-26] MEDS: POTASSIUM CHLORIDE 20 MEQ CONTROLLED RELEASE TAB PO (08:54)
[2017-11-26] MEDS: DILTIAZEM HCL 60 MG TAB PO (08:54)
[2017-11-26] MEDS: BISOPROLOL FUMARATE 5 MG TAB PO (08:54)
[2017-11-26] MEDS: TORSEMIDE 20 MG TAB PO (08:54)
[2017-11-26] MEDS: CITALOPRAM HYDROBROMIDE 20 MG TAB PO (08:55)
[2017-11-26] MEDS: DOCUSATE SODIUM 50 MG/SENNA 8.6 MG TAB PO (08:55)
[2017-11-26] MEDS: methylPREDNISolone SOD SUCC 40 MG/1 ML VIAL IV PUSH (08:59)
[2017-11-26] MEDS: SACUBITRIL/VALSARTAN 24 MG-26 MG TAB PO (09:00)
[2017-11-26] MEDS: ZEBETA 5 MG PO (09:00)
[2017-11-26] MEDS: DILTIAZEM-CD 240 MG CAP ER PO (09:00)
[2017-11-26] MEDS: SODIUM CHLORIDE 0.9% FLUSH 10 ML FLUSH IV FLUSH (11:24)
== END 2017-11-26 14:25 | DRG 166 ==
LOC: N05B 11-14 01:19 → HCIS 11-16 15:34 → PHED 04:31 → HCVI 11-16 20:45 → PHEDA 06:03 → PH3A 07:39
PROC: 0B9G8ZZ Drainage of Left Upper Lung Lobe, Via Natural or Artificial Opening Endoscopic (ICD-10-PCS; principal; 2017-11-15)
PROC: 0BDG8ZX Extraction of Left Upper Lung Lobe, Via Natural or Artificial Opening Endoscopic, Diagnostic (ICD-10-PCS; 2017-11-15)
PROC: 5A09357 Assistance with Respiratory Ventilation, Less than 24 Consecutive Hours, Continuous Positive Airway Pressure (ICD-10-PCS; 2017-11-15)
PROC: 5A1945Z Respiratory Ventilation, 24-96 Consecutive Hours (ICD-10-PCS; 2017-11-17)
PROC: 0BH17EZ Insertion of Endotracheal Airway into Trachea, Via Natural or Artificial Opening (ICD-10-PCS; 2017-11-17)
DX: J18.9 Pneumonia, unspecified organism (principal); I50.23 Acute on chronic systolic (congestive) heart failure; J96.21 Acute and chronic respiratory failure with hypoxia; G93.41 Metabolic encephalopathy; J44.0 Chronic obstructive pulmonary disease with (acute) lower respiratory infection; N17.9 Acute kidney failure, unspecified; D61.818 Other pancytopenia; R04.2 Hemoptysis; J44.1 Chronic obstructive pulmonary disease with (acute) exacerbation; I13.0 Hypertensive heart and chronic kidney disease with heart failure and stage 1 through stage 4 chronic kidney disease, or unspecified chronic kidney disease; E87.0 Hyperosmolality and hypernatremia; E87.2 Acidosis; N18.9 Chronic kidney disease, unspecified; E11.22 Type 2 diabetes mellitus with diabetic chronic kidney disease; E03.9 Hypothyroidism, unspecified; Y95 Nosocomial condition; Z77.22 Contact with and (suspected) exposure to environmental tobacco smoke (acute) (chronic); Z66 Do not resuscitate; I25.10 Atherosclerotic heart disease of native coronary artery without angina pectoris; I48.2 Chronic atrial fibrillation; J40 Bronchitis, not specified as acute or chronic; I08.1 Rheumatic disorders of both mitral and tricuspid valves; I25.5 Ischemic cardiomyopathy; Z85.51 Personal history of malignant neoplasm of bladder; Z85.42 Personal history of malignant neoplasm of other parts of uterus; Z85.3 Personal history of malignant neoplasm of breast; Z85.43 Personal history of malignant neoplasm of ovary; Z79.01 Long term (current) use of anticoagulants; Z86.19 Personal history of other infectious and parasitic diseases; Z95.5 Presence of coronary angioplasty implant and graft; Z79.4 Long term (current) use of insulin; Z87.891 Personal history of nicotine dependence
CPT/HCPCS: 31500; 31623; 36600; 71045; 71260; 76705; 76937; 80048; 80053; 80069; 80076; 80202; 81001; 82140; 82550; 82805; 82948; 83540; 83550; 83605; 83690; 83735; 83880; 84100; 84443; 84484; 85007; 85025; 85027; 85610; 85730; 87015; 87040; 87070; 87102; 87116; 87205; 87206; 87449; 88112; 88305; 92526-GN; 92610-GN; 93005; 93306; 94002; 94003; 94150; 94640; 94664; 94667; 94668; 97110-GP; 97116-GP; 97162-GP; 97164-GP; 97167-GO; 97530-GP